=== PATIENT | female | born 1950 | race Caucasian/White ===

== ENCOUNTER 2017-06-25 07:47 | Day surgery (SDC) | payer OTHER ==
[~2017-06-25] VITALS: Ht 167.6 cm; Wt 46.0 kg
[~2017-06-25 07:47] MED LIST: ALLEGRA ALLERG180 MG PO; ASPIRIN81 M2 PO; ATENOLOL50 MG PO; BENICAR20 MG PO; CALCITRIOL0.25 MCG PO; CARVEDILOL25 MG PO; EPIPEN ADU0.3 MG/0.3 IM; ERGOCALCIF50000 UNIT PO; FERRIC GLUCONATE; FERRIC GLUCONATE IV; FLORINEF ACETA0.1 MG PO; KENLAOG,ARISTOC60 ML TP; METOPROLOL SUCC50 MG PO; NEPHRO-VITE RX1 EACH PO; NEPHRO-VITE,1 TABLET PO; NEXIUM40 MG PO; NORVASC10 MG PO; PROAIR HFA8.5 GM IH; RENVELA800 MG PO; SINGULAIR10 MG PO; SYMBICORT60 INHALA1 IH; SYNTHROID137 MCG PO; SYNTHROID150 MCG PO; SYNTHROID75 MCG PO; VASOTEC20 MG PO; ZOFRAN4 MG PO; [UNRECOGNIZED DRUG - OTHER]
== END 2017-06-25 09:33 | disposition home or self-care (01) ==
LOC: CATH 07:47
DX: T82.858A Stenosis of other vascular prosthetic devices, implants and grafts, initial encounter (principal); Y83.2 Surgical operation with anastomosis, bypass or graft as the cause of abnormal reaction of the patient, or of later complication, without mention of misadventure at the time of the procedure; I12.0 Hypertensive chronic kidney disease with stage 5 chronic kidney disease or end stage renal disease; N18.6 End stage renal disease; Z99.2 Dependence on renal dialysis; D64.9 Anemia, unspecified; E78.00 Pure hypercholesterolemia, unspecified; J45.909 Unspecified asthma, uncomplicated
CPT/HCPCS: 87641; C1725; C1769; C1874; C1894; J1200; J1644; J2250; J2765; J2930; J3010